=== PATIENT | male | born 1960 | race Caucasian/White ===

== ENCOUNTER 2022-07-24 11:15 | Emergency (ER) | payer SELFPAY ==
--- NOTE | ~2022-07-24 | XR_ITS ---
EXAMINATION: XR KNEE, LEFT CLINICAL INFORMATION: Pain COMPARISON: None TECHNIQUE: Four views of the left knee. FINDINGS: There is a bipartite patella. No fracture or dislocation. Joint spaces are normal. There is a large joint effusion. XR/XR knee LT 4V IMPRESSION: No fracture or dislocation. Large joint effusion. Bipartite patella.
[2022-07-24 11:25] VITALS: BP 171/102; PULSE 76; RESP 22; TEMP 36.7; O2SAT 96; BMI 37.3
--- NOTE | 2022-07-24 11:30 | ECG_ITS ---
Test Reason : HYPERTENTION Blood Pressure : / mmHG Vent. Rate : 075 BPM Atrial Rate : 075 BPM P-R Int : 184 ms QRS Dur : 108 ms QT Int : 374 ms P-R-T Axes : 030 065 048 degrees QTc Int : 417 ms Normal sinus rhythm Normal ECG No previous ECGs available Referred By: Generic ED Physician Electronically Signed By:FARZANA WAGONER MD
--- NOTE | 2022-07-24 11:50 | ED_ITS ---
HPI - General Adult General Chief complaint: General Medical Stated complaint: gout in the knee cap Time Seen by Provider: 07/24/22 11:44 Source: patient Mode of arrival: wheelchair Limitations: no limitations History of Present Illness HPI narrative: Patient is a 62 year old assigned male at with a history of gout and hypertension presenting to the emergency department today with a gout flare in his left knee. Patient states that he has a history of gout and is having a flare in his left knee currently. Patient states that he does not have a primary care doctor and does not have insurance. Patient states that he applied for [employer] over a month ago but has not gotten approved yet. Patient states that he was previously prescribed allopurinol and that helped a lot. Patient denies any dizziness, lightheadedness, abdominal pain, nausea, vomiting, fever, chills, blurry vision, double vision, loss of vision, chest pain, difficulty breathing, shortness of breath, back pain, night sweats, pain with urination, increased urinary frequency, increased urinary urgency, blood in his urine or stool, syncope or a near syncopal episode, recent trauma or falls, bowel incontinence, bladder incontinence, bowel retention, bladder retention, or any other complaints at this time. Onset (ago): day(s) Location: left and lower extremity Radiation: non-radiation Severity: mild Severity scale (1-10): 3 Quality: aching Pain Consistency: constant Relieving factors: none Exacerbating factors: none Associated symptoms: denies other symptoms Treatments prior to arrival: none Related Data Previous Rx's Medication Instructions Recorded allopurinol 100 mg tablet 200 mg PO DAILY #30 tabs 07/24/22 colchicine 0.6 mg capsule 0.6 mg PO DAILY #90 caps 07/24/22 Allergies Allergy/AdvReac Type Severity Reaction Status Date / Time No Known Allergies Allergy Verified 07/24/22 11:25 Review of Systems Constitutional: Constitutional: Reports no additional constitutional complaints, Denies chills, Denies fever(s) and Denies night sweats Eyes: Eyes: Reports no additional eye complaints, Denies blurry vision, Denies change in vision, Denies diplopia, Denies eye discharge, Denies loss of vision and Denies eye pain ENT: Denies dizziness Cardiovascular: Cardiovascular: Reports no additional cardiovascular complaints, Denies chest pain, Denies lightheadedness, Denies Loss of Consciousness and Denies dyspnea Respiratory: Respiratory: Reports no additional respiratory complaints and Denies dyspnea Gastrointestinal: Gastrointestinal: Reports no additional gastrointestinal complaints, Denies abdominal pain, Denies melena, Denies hematochezia, Denies change in bowel habits and Denies change in stool character Genitourinary: Genitourinary: Reports no additional male genitourinary complaints, Denies hematuria, Denies oliguria, Denies difficulty urinating, Denies dysuria, Denies urinary frequency, Denies urinary hesitancy, Denies urinary incontinence and Denies urinary urgency Musculoskeletal: Musculoskeletal: Reports no additional musculoskeletal complaints, Denies numbness and Denies tingling Comments: left knee pain Neurologic: Denies dizziness, Denies loss of vision, Denies numbness and Denies tingling Psychiatric: Psychiatric: Reports no additional psychiatric complaints Endocrine: Endocrine: Reports no additional endocrine complaints Hematologic/Lymphatic: Hematologic/Lymphatic: Reports no additional hematologic/lymphatic complaints Allergic/Immunologic: Allergic/Immunologic: Reports no additional allergic/immunologic complaints PMFSH Past Medical History Attestation statement: The following information was validated with the patient. Source: old records reviewed Social History Social History Advance Directives: Yes Advance Directives Information Provided: Yes Advance Directives on File: No Physical Exam ED Vital Signs: Vital Signs - 24 hr 07/24/22 11:25 Temperature 98.0 F Pulse Rate 76 Respiratory Rate 22 H Blood Pressure 171/102 H Pulse Oximetry 96 Oxygen Delivery Method Room Air BMI result Body Mass Index 37.3 Const General: cooperative, no acute distress, alert and awake Nutritional Appearance: well nourished Orientation/consciousness: patient oriented x3 Limitations: no limitations HENMT Head: Yes normal to inspection and Yes atraumatic Ears: hearing grossly normal bilaterally and external ears normal General nose exam: Normal external nose present, no nasal discharge noted and no epistaxis Face and sinus: Yes normal facial exam, No abrasion and No laceration Mouth: Normal oral and palatal mucosa present, no drooling and no muffled voice Eyes General: appearance normal, both eyes and all related structures Periorbital: periorbital findings normal Eyelids: Yes eyelids normal Conjunctivae: conjunctivae normal Pupils: Equal, round and reactive pupils present EOM: EOMs intact bilaterally Neck Neck: Yes normal visual inspection, Yes full ROM and Yes no lymphadenopathy Chest Chest palpation & inspection: normal inspection of the chest Resp Effort & Inspection: normal respiratory effort and able to speak in complete sentences Auscultation: clear to auscultation bilaterally Cardio Rate: regular rate Rhythm: regular rhythm GI Inspection: Yes normal to inspection Neuro General: patient oriented x3 and moves all extremities Cranial nerves: Yes Equal, round and reactive pupils present Cognition (Neuro): normal cognition Motor exam (neuro): 5/5 motor strength present throughout Sensory Exam: Normal double simultaneous stimulation for sensation Coordination: [id number] test normal Extrem General: Yes normal to inspection, Yes full ROM and Yes capillary refill normal Psych Appearance: grossly normal Mental Status: mental status grossly normal Affect: normal affect Attitude: cooperative Thought process: Normal thought process present Thought content: Normal thought content present Insight: Good insight present (Psych) Medical Decision Making MDM Narrative Medical decision making narrative: Patient is a 62 year old assigned male at with a history of gout and hypertension presenting to the emergency department today with a gout flare in his left knee. Patient's physical exam was unremarkable. Patient's EKG was unremarkable. Patient's left knee x-ray showed no acute susan process. Patient's current clinical presentation is most consistent with a gout flare. I explained my physical exam findings as well as all test results to the patient. I answered all questions asked by the patient. I stressed the importance of the patient taking his medication as prescribed. I stressed the importance of the patient following up with a primary care provider. I stressed the importance of the patient returning to the emergency department immediately if his symptoms were to worsen or if he were to develop any dizziness, shortness of breath, difficulty breathing, chest pain, blurry vision, loss of vision, nausea, vomiting, abdominal pain, fever, chills, back pain, or any other complaints. Patient verbalized agreement and understanding with this treatment plan and discharge. Medical Records Medical records reviewed: Yes I reviewed the patient's medical records. Imaging Data Left knee x-ray: Attestation: I personally reviewed and interpreted this imaging study as follows: My impression: No acute process. Radiologist's impression: EXAMINATION: XR KNEE, LEFT CLINICAL INFORMATION: Pain? COMPARISON: None? TECHNIQUE: Four views of the left knee. FINDINGS: There is a bipartite patella. No fracture or dislocation. Joint spaces are normal. There is a large joint effusion.? XR/XR knee LT 4V IMPRESSION: No fracture or dislocation. Large joint effusion. Bipartite patella. Dictated By: Antonietta West MD Signed By: Electronically signed by Antonietta West MD 07/24/22 3904 ECG Data Attestation: I personally reviewed and interpreted this ECG as follows: Prior ECG tracings: available for review Interpretation: Vent. Rate: 075 BPM ? ? Atrial Rate: 075 BPM P-R Int: 184 ms? QRS Dur: 108 ms QT Int: 374 ms ? ? ? P-R-T Axes: 030 065 048 degrees QTc Int: 417 ms ? Normal sinus rhythm Normal ECG No previous ECGs available DD/ [id number] Discharge Plan Discharge Clinical Impression: Gout Patient Disposition: Home, Self-Care Instructions: Gout (ED) Additional Instructions: Follow up with a primary care provider. Return to the emergency department immediately if your symptoms worsen or if you develop any dizziness, shortness of breath, difficulty breathing, chest pain, blurry vision, loss of vision, nausea, vomiting, abdominal pain, fever, chills, back pain, or any other complaints. Prescriptions: New allopurinol 100 mg tablet 200 mg PO DAILY Qty: 30 0RF Rx Instructions: Take 2 tablets, twice a day when a flare starts until the flare resolves. colchicine 0.6 mg capsule 0.6 mg PO DAILY Qty: 90 0RF Rx Instructions: Take daily after your gout flare stops. Referrals: [facility] [Provider Group] (Call to establish and follow up with a primary care provider. ) [facility]] (Call to establish and follow up with a primary care provider. ) [facility] ([facility] to establish and follow up with a primary care provider. ) [facility] [Physician] - (Call to establish and follow up with a primary care provider. ) Interventions: ED Discharge Assessment Last Done: 07/24/22 12:26 Discharge Date/Time: 07/24/22 12:29 Print Language: Tanzanian
== END 2022-07-24 12:29 | disposition home or self-care (01) ==
LOC: HO.ED 12:20
PROVIDERS: Emergency Provider Student in an Organized Health Care Education/Training Program
DX: M10.062 Idiopathic gout, left knee (principal); I10 Essential (primary) hypertension; Z79.899 Other long term (current) drug therapy
CPT/HCPCS: 73564; 93005; 99282; 99283

== ENCOUNTER 2022-07-27 14:22 | Emergency (ER) | payer SELFPAY ==
[2022-07-27 15:39] VITALS: BP 165/86; PULSE 91; RESP 20; TEMP 37.5; O2SAT 96; BMI 36.6
[2022-07-27] MEDS: Ibuprofen 600 MG TABLET PO (15:45)
--- NOTE | 2022-07-27 17:39 | ED_ITS ---
HPI - General Adult General Chief complaint: Extremity Injury, Lower Stated complaint: chest pain , dizziness, sob, blurred vision Time Seen by Provider: 07/27/22 17:28 Source: patient Mode of arrival: ambulatory Limitations: no limitations History of Present Illness HPI narrative: 62 yold male with pmh history of gout and hypertension with no health insurance presents to the ED for left knee exacrebation. patient was recently seen in the ED on 07/24 for left knee gout exacerbation. Patient was discharged with allupurinol and colcichine but no indomethacin due to no insurance. patient states pain is still persistent. Patient denies fever, chills, chest pain, shortness of breath, redness, or any recent trauma. Before last ED visit patiient admitted to having alcohol and meat binge and than symptmos started. Related Data Previous Rx's Medication Instructions Recorded allopurinol 100 mg tablet 200 mg PO DAILY #30 tabs 07/24/22 colchicine 0.6 mg capsule 0.6 mg PO DAILY #90 caps 07/24/22 indomethacin 50 mg capsule 50 mg PO TID 5 days #15 caps 07/27/22 oxycodone 5 mg tablet 5 mg PO TID PRN pain 3 days #9 tabs 07/27/22 prednisone 20 mg tablet 40 mg PO DAILY 5 days #10 tabs 07/27/22 Allergies Allergy/AdvReac Type Severity Reaction Status Date / Time No Known Allergies Allergy Verified 07/24/22 11:25 Review of Systems Review of Systems: Left knee pain Yes all other systems are reviewed and are negative PMFSH Social History Social History Advance Directives: No Advance Directives Information Provided: No Physical Exam ED Vital Signs: Vital Signs - 24 hr 07/27/22 15:39 07/27/22 19:13 Temperature 99.5 F 98.3 F Pulse Rate 91 85 Respiratory Rate 20 20 Blood Pressure 165/86 H 167/93 H Pulse Oximetry 96 96 Oxygen Delivery Method Room Air Room Air BMI result Body Mass Index 36.6 Const General: cooperative, healthy appearing, comfortable, no acute distress, well developed, alert, awake and Physically active Orientation/consciousness: patient oriented x3 HENMT Head: Yes normal to inspection, Yes No palpable skull fracture present, Yes normocephalic, Yes atraumatic and No abrasion Eyes General: appearance normal, both eyes and all related structures Neck Neck: Yes normal visual inspection, Yes full ROM, Yes no lymphadenopathy, Yes no meningeal signs, Yes trachea midline, Yes supple, No anterior neck swelling and No tender Chest Chest palpation & inspection: normal inspection of the chest and normal palpation of entire chest wall Resp Effort & Inspection: normal respiratory effort and able to speak in complete sentences Auscultation: clear to auscultation bilaterally Cardio Jugular venous distension: no JVD Heart sounds: S1 normal heart sound present and S2 normal heart sound present GI Inspection: Yes normal to inspection and No abdominal wall ecchymosis Palpation (GI): Soft to palpation, not firm, nontender, no guarding and not rigid General: No CVA tenderness and Yes no CVA tenderness Back/Spine/Pelvis Back: no CVA tenderness, No CVA tenderness and No back tenderness Skin General skin exam: no rashes or lesions noted and elasticity normal Neuro General: patient oriented x3, gait normal and no meningeal signs Cranial nerves: Yes CN's II-XII intact bilaterally Extrem Knee images: 1. anterior left knee swelling without Redness. positive for tenderness. patient able to move knee, but with pain. Rest of leg negative for erythema, swelling, or calf pain. Motor/Neuro/Vascular Exam is intact Psych Appearance: grossly normal, well kempt and not disheveled Course Course Course Narrative: Patient educated on getting insurance to recieve meds to treat gout. Vital signs does not inidicate Infection. Will give pain meds and reasses. Reevaluation(s) Reevaluation #1: Patient's pain resolved after receiving Toradol, oxycodone, and steroids. Patient has complete range of motion of knee. Not suspecting septic joint. Once again this is gout exacerbation. Patient will be discharged with indomethacin, steroids, and oxycodone. Patient will be given yellow card for discount Time: 19:22 Medical Decision Making [facility] Narrative Medical decision making narrative: Gout exacerbation Discharge Plan Discharge Clinical Impression: Gout attack Patient Disposition: Home, Self-Care Instructions: Gout (ED) Additional Instructions: You were seen in the ED for gout exacerbation. You will be discharged with indomethacin, steroids, and oxycodone. Return to the ED immediately for any increased swelling, warmth, fever, chills, leg swelling, knee stiffness, calf pain, chest pain, shortness of breath, or any other concerning symptoms. Please follow up with primary care provider. Prescriptions: New indomethacin 50 mg capsule 50 mg PO TID 5 Days Qty: 15 0RF Rx Instructions: administer with food or milk prednisone 20 mg tablet 40 mg PO DAILY 5 Days Qty: 10 0RF oxycodone 5 mg tablet 5 mg PO TID PRN (Reason: pain) 3 Days Qty: 9 0RF Rx Instructions: Partial Fill upon patient request. Side effect is drowsiness. Do not take at work or while driving. No Action allopurinol 100 mg tablet 200 mg PO DAILY Qty: 30 0RF Rx Instructions: Take 2 tablets, twice a day when a flare starts until the flare resolves. colchicine 0.6 mg capsule 0.6 mg PO DAILY Qty: 90 0RF Rx Instructions: Take daily after your gout flare stops. Referrals: [facility] [Provider Group] (Gout exacerbation) Interventions: ED Discharge Assessment Last Done: 07/27/22 19:36 Discharge Date/Time: 07/27/22 19:37 Print Language: Greek
[2022-07-27] MEDS: Ketorolac Tromethamine 30 MG/ML VIAL IM (18:26)
[2022-07-27] MEDS: oxyCODONE HCl Immed Release 5 MG TABLET 10 MG PO (18:27)
[2022-07-27] MEDS: predniSONE 20 MG TABLET 60 MG PO (18:27)
[2022-07-27 19:13] VITALS: BP 167/93; PULSE 85; RESP 20; TEMP 36.8; O2SAT 96
--- NOTE | 2022-07-27 19:35 | PC.NURSE ---
Discharge instructions provided to pt by [facility].
== END 2022-07-27 19:37 | disposition home or self-care (01) ==
PROVIDERS: Emergency Provider Emergency Medicine
DX: M10.9 Gout, unspecified (principal); M25.562 Pain in left knee; I10 Essential (primary) hypertension
CPT/HCPCS: 96372; 99283; 99284; J1885

== ENCOUNTER 2024-04-04 07:45 | Emergency (ER) | payer SELFPAY ==
[2024-04-04 07:53] VITALS: BP 130/84; PULSE 89; RESP 20; TEMP 36.6; O2SAT 97; BMI 39.2
--- NOTE | 2024-04-04 08:02 | PC.NURSE ---
This RN had just finished triaging patient when MD came to bedside. the MD was asking multiple questions when patient stated I just need the meds today I aint got much time left anyways and hen continued to motion a gun motion to his head. This RN and MD asked clarifying questions to which patient stated he was tired and just didnt want to do it anymore, then continued to say he was suicidal (while laughing and joking about it) Pt stated he would go in front of a truck or shoot himself, but then stated I do not own guns. Patient laughing throughout, not giving staff definite answers, stating he is only saying all of this because he is in pain
--- NOTE | 2024-04-04 08:13 | ED.EXTPRO ---
HPI - Extremity Problem General Chief complaint: General Medical Stated complaint: Gout Time Seen by Provider: 04/04/24 07:59 Source: patient and old records reviewed Mode of arrival: wheelchair Limitations: no limitations History of Present Illness ED Provider: CHRISTINA GOODWIN Narrative: 64 yo male with no health insurance so he does not see a doctor states he gets recurrent gout in both knees and other joints. He comes in with c/o 3-4 days of R knee pain and has been prescribed meds here in the past that helped. He notes they are expensive so he cannot always take all of them. He has no fevers, he states he needs to get better to work. I spoke to him about seeing a doctor regularly for kidney function given he has taken indomethacin and allopurinol in the past and that just continuing these medications without follow up might not be the best choice. I spoke to him about starting steroids and pain medications and then he just started to rapid fire suicidal plans. He stated doc I don't have long to live, I am suicidal and just dont' think I'm going to live long maybe a year or 10 . He then held his hand up to his head in a gun gesture, he next stated or maybe I will jump in front of a truck. He was smiling the whole time and when I explained we cannot just let you go after all of this he stated ok but didn't seem to understand why. He then told me he doesn't own guns. His mood does not seem to match his statements. Complaint: joint swelling and joint pain Onset (ago): day(s) (4) Pain Consistency: constant Location: left, right and knee Quality: aching and constant Radiation: none Relieving factors: immobilization Exacerbating factors: range of motion, weight bearing, walking and palpation Associated symptoms: denies other symptoms Context: history of gout Related Data Previous Rx's ?Medication ?Instructions ?Recorded allopurinol 100 mg tablet 200 mg (2 x 100 mg) PO DAILY #30 07/24/22 tabs colchicine 0.6 mg capsule 0.6 mg PO DAILY #90 caps 07/24/22 indomethacin 50 mg capsule 50 mg PO TID 5 days #15 caps 07/27/22 oxycodone 5 mg tablet 5 mg PO TID PRN pain 3 days #9 tabs 07/27/22 prednisone 20 mg tablet 40 mg (2 x 20 mg) PO DAILY 5 days 07/27/22 #10 tabs morphine 15 mg immediate release 15 mg PO Q6H PRN pain #10 tabs 04/04/24 tablet prednisone 20 mg tablet 40 mg (2 x 20 mg) PO DAILY 5 days 04/04/24 #10 tabs Allergies Allergy/AdvReac Type Severity Reaction Status Date / Time No Known Allergies Allergy Verified 04/04/24 07:56 Review of Systems Review of Systems: Constitutional : No Fever, No Chills ENT/Mouth : No Ear Pain, No Hoarseness, No sore throat Eyes: No Eye Pain, No Swelling, No Redness, No Foreign Body Cardiovascular : No Chest Pain, No SOB Respiratory : No Cough, No Dyspnea Gastrointestinal : No Nausea, No Vomiting, No Diarrhea, No abdominal Pain Genitourinary : No Dysuria, No Hematuria Musculoskeletal : positive joint pain, No Myalgias, pos Joint Swelling Skin : No Skin lacerations, No rash Neuro : No Weakness, No Numbness, No Loss of Consciousness, No Dizziness, No Headache Psych : No Anxiety/Panic, No Depression All other systems reviewed and are negative [facility] Past Medical History Attestation statement: The following information was validated with the patient. Source: old records reviewed Medical History (Updated 04/04/24 @ 08:24 by Araseli Brunner DO) Gout Social History Social History (Updated 04/04/24 @ 08:20 by Araseli Brunner DO) Patient Tobacco Use Status: Current everyday Tobacco user Advance Directives: No Do you have a plan to hurt others: No Plan Physical Exam Vital Signs: Vital Signs: Last Vital Signs Temp 98 F 04/04/24 07:53 Pulse 89 04/04/24 07:53 Resp 20 04/04/24 07:53 BP 130/84 04/04/24 07:53 Pulse Ox 97 04/04/24 07:53 O2 Del Method Room Air 04/04/24 07:53 BMI result Body Mass Index 39.2 Appearance: Alert. Oriented X3. No acute distress. Eyes: Pupils equal, round and reactive to light. ENT: Pharynx normal. Neck: Normal inspection. Neck supple. CVS: Normal heart rate and rhythm. Pulses normal. Respiratory: No respiratory distress. Breath sounds normal. Abdomen: Soft and nontender. Skin: Skin warm and dry. Normal skin color. Normal skin turgor. Extremities: R knee not red or hot to touch - he has small to medium joint effusion distal NV intact, L knee also appears arthritic but no red or hot with small joint effusion Neuro: Oriented X 3. No motor deficit. No sensory deficit. CN 2-12 intact Course Course Course Narrative: observation care revealed that the patient does not meet medical / psychiatric necessity for hospitalization. final disposition discussed with the patient. The patient completed observation care at 1045m. Total time in observation care was 2 hours. Medications Administered Discontinued Medications Generic Name Dose Route Start Last Admin Trade Name Tanya PRN Reason Stop Dose Admin Morphine Sulfate 15 mg 04/04/24 07:59 04/04/24 08:49 Morphine Sulfate Immed Release 15 Mg Tablet PO 04/04/24 08:00 15 mg ONCE ONE Administration Prednisone 60 mg 04/04/24 07:59 04/04/24 08:49 Prednisone 20 Mg Tablet PO 04/04/24 08:00 60 mg ONCE ONE Administration Medical Decision Making Medical Decision Making MDM Narrative: 64 yo male with hx of gout and no PCP follow up who presents with c/o chronic intermittent gout initially the plan was to start on prednisone and pain medications which was the safest route in someone not following up with PCP or getting labs done but then he started to make SI statements with a plan. At this time gout treatment then med clearance for CARE team. Differential Diagnosis Differential Diagnoses: The differential diagnosis associated with the presentation includes gout, pseudogout depression Admission/Observation Consideration of admission/observation: Escalation of care including admission/observation considered physician observation started at 820am pending CARE team input Consult Healthcare Provider Management of the patient was discussed with: Behavioral Health Provider Lab Data [facility] Lab Attestation statement: I reviewed the patient's lab results. 04/04/24 08:40 04/04/24 08:40 Labs: Lab Results 04/04/24 04/04/24 Range/Units 08:40 09:20 WBC 14.6 H (4.8-10.8) X10*3/uL RBC 4.88 (4.60-5.80) X10*6/uL Hgb 15.5 (14.0-18.0) g/dl Hct 44.7 (42.0-52.0) % MCV 91.6 (80.0-98.0) fL MCH 31.8 (27.0-33.0) pg MCHC 34.7 (31.0-36.0) g/dl RDW 13.1 (11.0-16.0) % Plt Count 258 (160-400) X10*3/uL MPV 9.8 (9.4-12.4) fL Immature Gran % (Auto) 0.6 H (0.0-0.4) % Neut % (Auto) 73.4 H (45-73) % Lymph % (Auto) 15.6 L (20-40) % [place] % (Auto) 7.8 (2-11) % Eos % (Auto) 1.8 (0-4) % Baso % (Auto) 0.8 (0-2) % Lymph # (Auto) 2.3 (1.2-4.9) X10*3/uL [place] # (Auto) 1.1 (0.1-1.2) X10*3/uL Eos # (Auto) 0.3 (0.0-0.4) X10*3/uL Baso # (Auto) 0.1 (0.0-0.2) X10*3/uL Abs Immat Gran (auto) 0.09 H (0.00-0.03) X10*3/uL Absolute Neuts (auto) 10.7 H (2.0-8.3) x10*3/uL Absolute Nucleated RBC 0.000 (0.0-0.012) X10*3/uL Nucleated RBC % (auto) 0.0 (0.0-0.2) /100WBC Sodium 134 L (135-145) mmol/L Potassium 4.2 (3.3-5.1) mmol/L Chloride 103 (96-108) mmol/L Carbon Dioxide 17 L (22-29) mmol/L Anion Gap 18 (12-20) BUN 12 (9-16) mg/dL Creatinine 0.83 (0.5-1.4) mg/dL Estim Creat Clear Calc 110.9 Estimated GFR > 60 Random Glucose 110 (60-115) mg/dL Calcium 10.0 (8.4-10.2) mg/dL Urine Opiates Screen Not Detected (Not Detect) Ur Buprenorphine Scrn Not Detected (Not Detect) ng/mL Ur Oxycodone Screen Not Detected (Not Detect) ng/mL Urine Methadone Screen Not Detected (Not Detect) ng/mL Urine Fentanyl Screen Not Detected (Not Detect) Ur Barbiturates Screen Not Detected (Not Detect) Ur Phencyclidine Scrn Not Detected (Not Detect) Ur Amphetamines Screen Not Detected (Not Detect) U Benzodiazepines Scrn Not Detected (Not Detect) Urine Cocaine Screen Not Detected (Not Detect) U Marijuana (THC) Screen POSITIVE H (Not Detect) Ethyl Alcohol < 10 mg/dL External Record Review External record reviewed: Inpatient record Prescription Management I considered prescription management with: Pain Medication and Other Discharge Plan Discharge Clinical Impression: Gout attack Qualifiers: Gout site: knee Gout etiology: unspecified cause Laterality: right Qualified Code(s): M10.9 - Gout, unspecified Patient Disposition: Home, Self-Care Instructions: Gout (ED) Additional Instructions: return for wrosening symptoms or concerns. follow up for fevers, increased swelling and no improvement in the next 48 hours, redness of the joint Prescriptions: New prednisone 20 mg tablet 40 mg PO DAILY 5 Days Qty: 10 0RF morphine 15 mg tablet 15 mg PO Q6H PRN (Reason: pain) Qty: 10 0RF Rx Instructions: partial fill okay; Partial Fill upon patient request. No Action allopurinol 100 mg tablet 200 mg PO DAILY Qty: 30 0RF Rx Instructions: Take 2 tablets, twice a day when a flare starts until the flare resolves. colchicine 0.6 mg capsule 0.6 mg PO DAILY Qty: 90 0RF Rx Instructions: Take daily after your gout flare stops. indomethacin 50 mg capsule 50 mg PO TID 5 Days Qty: 15 0RF Rx Instructions: administer with food or milk prednisone 20 mg tablet 40 mg PO DAILY 5 Days Qty: 10 0RF oxycodone 5 mg tablet 5 mg PO TID PRN (Reason: pain) 3 Days Qty: 9 0RF Rx Instructions: Partial Fill upon patient request. Side effect is drowsiness. Do not take at work or while driving. Print Language: Togolese
[2024-04-04 08:44] LABS: MANUAL DIFF FLAG NO
[2024-04-04 08:47] LABS: Basophils Absolute Auto 0.1 X10*3/uL (0.0-0.2); Basophils Percent Auto 0.8 % (0-2); Eosinophils Absolute Auto 0.3 X10*3/uL (0.0-0.4); Eosinophils Percent Auto 1.8 % (0-4); Hematocrit 44.7 % (42.0-52.0); Hemoglobin 15.5 g/dl (14.0-18.0); Imm Gran Abs Auto 0.09 X10*3/uL (0.00-0.03); Imm Gran Pct Auto 0.6 % (0.0-0.4); Lymphocytes Absolute Auto 2.3 X10*3/uL (1.2-4.9); Lymphocytes Percent Auto 15.6 % (20-40); Mean Corpuscular HGB Conc 34.7 g/dl (31.0-36.0); Mean Corpuscular Hemoglobin 31.8 pg (27.0-33.0); Mean Corpuscular Volume 91.6 fL (80.0-98.0); Mean Platelet Volume 9.8 fL (9.4-12.4); Monocytes Absolute Auto 1.1 X10*3/uL (0.1-1.2); Monocytes Percent Auto 7.8 % (2-11); Neutrophils Absolute Auto 10.7 x10*3/uL (2.0-8.3); Neutrophils Percent Auto 73.4 % (45-73); Platelet Count 258 X10*3/uL (160-400); Red Blood Count 4.88 X10*6/uL (4.60-5.80); Red Cell Distribution Width 13.1 % (11.0-16.0); White Blood Count 14.6 X10*3/uL (4.8-10.8)
[2024-04-04] MEDS: predniSONE 20 MG TABLET 60 MG PO (08:49)
[2024-04-04] MEDS: Morphine Sulfate Immed Release 15 MG TABLET PO (08:49)
[2024-04-04 09:03] LABS: Anion Gap 18 (12-20); Blood Urea Nitrogen 12 mg/dL (9-16); Carbon Dioxide 17 mmol/L (22-29); Chloride 103 mmol/L (96-108); Creatinine Clr Calc Pharmacy 110.9; Estimated Glomerular Filt Rate > 60; Ethanol < 10 mg/dL; Glucose Random 110 mg/dL (60-115); Potassium 4.2 mmol/L (3.3-5.1); Sodium 134 mmol/L (135-145)
[2024-04-04 09:38] LABS: Amphetamine Screen Urine Not Detected (Not Detect); Barbiturates, Urine Not Detected (Not Detect); Benzodiazepines Screen Urine Not Detected (Not Detect); Buprenorphine Scr Not Detected (Not Detect); Cannabinoid Screen Urine POSITIVE (Not Detect); Cocaine Screen Urine Not Detected (Not Detect); Fentanyl, urine Not Detected (Not Detect); Methadone Screen, Urine Not Detected (Not Detect); Opiate Screen Urine Not Detected (Not Detect); Oxycodone Screen Urine Not Detected (Not Detect); Phencyclidine Screen Urine Not Detected (Not Detect)
--- NOTE | 2024-04-04 11:05 | PC.NURSE ---
CARE team at bedside, pt denies any SI thoughts/means/prior attempts. pt reports that he made joking statements because of the pain. provider aware.
[2024-04-04 11:08] VITALS: BP 130/84; PULSE 89; RESP 20; TEMP 36.6; O2SAT 97
== END 2024-04-04 11:08 | disposition home or self-care (01) ==
PROVIDERS: Emergency Provider Emergency Medicine
DX: M10.061 Idiopathic gout, right knee (principal); M10.062 Idiopathic gout, left knee; M25.50 Pain in unspecified joint; Z79.899 Other long term (current) drug therapy
CPT/HCPCS: 36415; 80048; 80307; 85025; 99283; S9485

== ENCOUNTER 2025-03-18 12:26 | Emergency (ER) | payer MEDICAID, SELFPAY ==
--- NOTE | ~2025-03-18 | XR_ITS ---
CLINICAL HISTORY: pain, swelling 4 views of the right knee. COMPARISON: None FINDINGS: [id number] right suprapatellar joint effusion. Soft tissue swelling overlying the anterior aspect of the knee. Joint spaces are maintained. Small osteophytes present along the patellofemoral compartment. Visualized portions of the distal femur, patella, and proximal tibia and fibula appear intact. Fabella present. Well corticated thin ossification along the medial femoral condyle can be associated with chronic MCL injury. This does not appear acute. IMPRESSION: 1. [id number] right suprapatellar joint effusion. Soft tissue swelling overlying the anterior aspect of the knee. This document has been electronically signed by: Gino Vo MD on 03/18/2025 15:56:06
--- NOTE | ~2025-03-18 | XR_ITS ---
CLINICAL HISTORY: pain, swelling Three views of the right hand. COMPARISON: None FINDINGS: Distal radius and ulna appear intact. Decreased radiocarpal joint space with [id number] apposition of the radius and lunate. Carpal bones appear intact. Degenerative changes of the 1st CMC joint with small osteophytes. Metacarpals appear intact. Phalanges appear intact. Degenerative changes of the 5th DIP joint with prominent osteophytes. No radiopaque foreign body. IMPRESSION: 1. No radiographic evidence of acute injury to the right hand. 2. 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 This document has been electronically signed by: Gino Vo MD on 03/18/2025 15:55:07
[2025-03-18 12:34] VITALS: BP 164/96; PULSE 92; RESP 18; TEMP 36.8; O2SAT 96; BMI 38.0
[2025-03-18 12:38] VITALS: BP 138/100; PULSE 92; O2SAT 98
--- NOTE | 2025-03-18 12:42 | ED.LOWEXIN ---
HPI - Extremity Injury (Lower) General Chief Complaint: Extremity Injury, Lower Stated Complaint: KNEE PAIN Time Seen by Provider: 03/18/25 12:41 Source: patient and RN notes reviewed Mode of arrival: ambulatory Limitations: no limitations History of Present Illness ED Provider: Marcy Gil PA-C HPI Narrative: This is a 65-year-old male, with a past medical history of gout and hypertension, who presents emergency department with concerns of gout flare-up. patient reports that over the last 4-5 days he has had pain in his right knee, right ankle, and right foot. He states that he has a history of gout in his feels exactly like the gout flare-ups he has had in the past. He he has not on any medications at this time. He denies any fevers or chills. No chest pain or shortness of breath. Denies taking any medications prior to his arrival today. He is a pack-a-day smoker. No other complaints or concerns at this time. Onset (ago): day(s) Other symptoms: none Related Data Previous Rx's ?Medication ?Instructions ?Recorded allopurinol 100 mg tablet 200 mg (2 x 100 mg) PO DAILY #30 07/24/22 tabs colchicine 0.6 mg capsule 0.6 mg PO DAILY #90 caps 07/24/22 indomethacin 50 mg capsule 50 mg PO TID 5 days #15 caps 07/27/22 oxycodone 5 mg tablet 5 mg PO TID PRN pain 3 days #9 tabs 07/27/22 prednisone 20 mg tablet 40 mg (2 x 20 mg) PO DAILY 5 days 07/27/22 #10 tabs morphine 15 mg immediate release 15 mg PO Q6H PRN pain #10 tabs 04/04/24 tablet prednisone 20 mg tablet 40 mg (2 x 20 mg) PO DAILY 5 days 04/04/24 #10 tabs acetaminophen 500 mg tablet 1,000 mg (2 x 500 mg) PO Q8H PRN 03/18/25 (Tylenol Extra Strength) pain #30 tabs morphine 15 mg immediate release 15 mg PO Q6H PRN severe pain 03/18/25 tablet (scale score 7-10) #7 tabs prednisone 20 mg tablet 40 mg (2 x 20 mg) PO DAILY 4 days 03/18/25 #8 tabs Allergies Allergy/AdvReac Type Severity Reaction Status Date / Time No Known Allergies Allergy Verified 03/18/25 12:35 Review of Systems Review of Systems: Yes all other systems are reviewed and are negative Constitutional: Constitutional: Reports as per HPI Eyes: Eyes: Reports as per HPI, Denies change in vision and Denies eye discharge ENT: Reports system reviewed and no additional complaints, except as documented, Reports as per HPI, Reports Normal hearing present and Denies facial pain Cardiovascular: Cardiovascular: Reports as per HPI and Denies chest pain Respiratory: Respiratory: Reports as per HPI and Denies cough Gastrointestinal: Gastrointestinal: Reports as per HPI, Reports no additional gastrointestinal complaints, Denies abdominal pain, Denies diarrhea, Denies nausea and Denies vomiting Genitourinary: Genitourinary: Reports as per HPI Musculoskeletal: Musculoskeletal: Reports as per HPI Integumentary/Breasts: Skin/Breast: Reports system reviewed and no additional complaints, except as docu, Reports as per HPI, Reports erythema, Denies rash and Denies wounds Neurologic: Reports Normal hearing present Psychiatric: Psychiatric: Reports no additional psychiatric complaints and Reports as per HPI Endocrine: Endocrine: Reports no additional endocrine complaints and Reports as per HPI Hematologic/Lymphatic: Hematologic/Lymphatic: Reports no additional hematologic/lymphatic complaints and Reports as per HPI Allergic/Immunologic: Allergic/Immunologic: Reports no additional allergic/immunologic complaints and Reports as per HPI [facility] Past Medical History Medical History (Updated 03/18/25 @ 16:51 by SALVADOR Armstrong) Gout Social History Social History (Updated 04/04/24 @ 08:20 by Araseli Brunner DO) Patient Tobacco Use Status: Current everyday Tobacco user Physical Exam Vital Signs: Vital Signs: Last Vital Signs Temp 98.4 F 03/18/25 17:00 Pulse 74 03/18/25 17:00 Resp 14 03/18/25 17:00 BP 144/82 H 03/18/25 17:00 Pulse Ox 93 03/18/25 17:00 O2 Del Method Room Air 03/18/25 17:00 BMI result Body Mass Index 38.0 Const: General: cooperative, comfortable and no acute distress Orientation/consciousness: patient oriented x3 Limitations: no limitations HEENT: Head: Yes normal to inspection, Yes normocephalic and Yes atraumatic Ears: hearing grossly normal bilaterally General nose exam: Normal external nose present Face and sinus: Yes normal facial exam Mouth: Normal oral and palatal mucosa present, oropharynx normal and moist mucous membranes Throat: Yes posterior oropharynx normal Eyes: General: appearance normal, both eyes and all related structures Eyelids: Yes eyelids normal Conjunctivae: conjunctivae normal Sclerae: sclerae normal Pupils: Equal, round and reactive pupils present EOM: EOMs intact bilaterally Neck: Neck: Yes normal visual inspection, Yes full ROM and Yes no lymphadenopathy Lymphatic: no lymphadenopathy noted Chest: Chest palpation & inspection: normal inspection of the chest Resp: Effort & Inspection: normal respiratory effort and able to speak in complete sentences Auscultation: clear to auscultation bilaterally Cardio: Rate: regular rate Rhythm: regular rhythm Heart sounds: S1 normal heart sound present and S2 normal heart sound present GI: Inspection: Yes normal to inspection Skin: General skin exam: no rashes or lesions noted Trauma: no lacerations or abrasions Wounds: no wounds Neuro: General: patient oriented x3 and moves all extremities Cranial nerves: Yes Equal, round and reactive pupils present and Yes Normal hearing present Extrem: Other: right knee, right ankle, and right foot with exquisite tenderness even with light touch, no profound overlying erythema or warmth. Able to flex and extend at the knee and ankle joint. No calf tenderness. Strong DP pulse. Sensation intact. Leg is well perfused. patient with moderate tenderness palpation along the dorsum of the right hand, no overlying erythema or warmth. Full ROM. Strong radial pulse. General: Yes normal to inspection Right upper extremity: normal to inspection Left upper extremity: normal to inspection Left lower extremity: normal to inspection Medications Administered Discontinued Medications Generic Name Dose Route Start Last Admin Trade Name Justinq PRN Reason Stop Dose Admin Acetaminophen 975 mg 03/18/25 16:46 03/18/25 16:52 Acetaminophen 325 Mg Tablet PO 03/18/25 16:47 975 mg ONCE ONE Administration Morphine Sulfate 4 mg 03/18/25 12:48 03/18/25 13:03 Morphine Sulfate 4 Mg/Ml Cartridge IVPUSH 03/18/25 12:49 4 mg ONCE ONE Administration Protocol Morphine Sulfate 4 mg 03/18/25 16:46 03/18/25 16:52 Morphine Sulfate 4 Mg/Ml Cartridge IVPUSH 03/18/25 16:47 4 mg ONCE ONE Administration Protocol Prednisone 50 mg 03/18/25 12:48 03/18/25 13:03 Prednisone 10 Mg Tablet PO 03/18/25 12:49 50 mg ONCE ONE Administration Medical Decision Making Medical Decision Making [facility] Narrative: This is a 65-year-old male who presents emergency department for evaluation of gout flare-up in his right knee, ankle and foot. On arrival, patient hypertensive at 164/96, he has no chest pain, shortness for breath or blurred vision. No headache. You likely secondary to the pain. Patient has a history of gouty flare-ups which she has seen providers here in the past for. No fevers or chills. Will obtain basic labs, and medicate with dose of morphine and prednisone in the emergency department. Will continue to closely monitor. 1700 - X-ray of the knee revealing moderate to large right suprapatellar joint effusion, soft tissue swelling overlying the anterior aspect of the knee, right hand x-ray revealing no acute injury, he does have degenerative changes more pronounced along the 50 IP joint. Patient re-evaluated, feeling much better after receiving prednisone. Labs returned, he has elevated white blood cell count at 13.1, however this is nonspecific, does not appear to be infectious, this is likely reactive. uric acid is elevated, inflammatory markers are also elevated. Patient has a history of gout and symptoms are consistent with a gout like flare-up. Will treat with prednisone, pain management. Given strict return precautions. Patient stable for discharge. Differential Diagnosis Differential Diagnoses: The differential diagnosis associated with the presentation includes Gouty arthritis, pseudogout, arthritis Lab Data [facility] Lab Attestation statement: I reviewed the patient's lab results. See MDM and course 03/18/25 12:58 03/18/25 12:58 Labs: Lab Results 03/18/25 Range/Units 12:58 WBC 13.1 H (4.8-10.8) X10*3/uL RBC 4.37 L (4.60-5.80) X10*6/uL Hgb 14.0 (14.0-18.0) g/dl Hct 40.1 L (42.0-52.0) % MCV 91.8 (80.0-98.0) fL MCH 32.0 (27.0-33.0) pg MCHC 34.9 (31.0-36.0) g/dl RDW 13.1 (11.0-16.0) % Plt Count 261 (160-400) X10*3/uL MPV 9.8 (9.4-12.4) fL Immature Gran % (Auto) 0.5 H (0.0-0.4) % Neut % (Auto) 76.7 H (45-73) % Lymph % (Auto) 12.5 L (20-40) % [place] % (Auto) 8.9 (2-11) % Eos % (Auto) 0.9 (0-4) % Baso % (Auto) 0.5 (0-2) % Lymph # (Auto) 1.6 (1.2-4.9) X10*3/uL [place] # (Auto) 1.2 (0.1-1.2) X10*3/uL Eos # (Auto) 0.1 (0.0-0.4) X10*3/uL Baso # (Auto) 0.1 (0.0-0.2) X10*3/uL Abs Immat Gran (auto) 0.07 H (0.00-0.03) X10*3/uL Absolute Neuts (auto) 10.1 H (2.0-8.3) x10*3/uL Absolute Nucleated RBC 0.000 (0.0-0.012) X10*3/uL Nucleated RBC % (auto) 0.0 (0.0-0.2) /100WBC ESR 33 H (0-15) MM/HR Sodium 132 L (135-145) mmol/L Potassium 4.0 (3.3-5.1) mmol/L Chloride 101 (96-108) mmol/L Carbon Dioxide 20 L (22-29) mmol/L Anion Gap 15 (12-20) BUN 8 L (9-16) mg/dL Creatinine 0.69 (0.5-1.4) mg/dL Estim Creat Clear Calc 142.4 Estimated GFR > 60 Random Glucose 139 H (60-115) mg/dL Uric Acid 8.9 H (3.4-7.0) mg/dL Calcium 9.4 (8.4-10.2) mg/dL Total Bilirubin 1.4 H (0.0-1.0) mg/dL AST 14 (5-37) U/L ALT 20 (0-40) U/L Alkaline Phosphatase 74 (39-117) U/L C-Reactive Protein 7.91 H (< or = 0.50) mg/dL Total Protein 7.4 (6.5-8.0) g/dL Albumin 4.4 (3.5-5.0) g/dL Radiology Impression Discussion of test interpretation with radiology: I have reviewed the radiologist's reading. Radiologist Impression: [address] [address] XRay Report Signed Patient: Tam Bernal MR#: [id number] : 1960 Acct:[id number] Age/Sex: 65 / M ADM Date: 03/18/25 Loc: HO.ED Attending Dr: Ordering Physician: Marcy Andrade Date of Service: 03/18/25 Procedure(s): XR hand RT min 3V Accession Number(s): [id number] cc: Marcy Andrade; Physician,None ~ CLINICAL HISTORY: pain, swelling Three views of the right hand. COMPARISON: None FINDINGS: Distal radius and ulna appear intact. Decreased radiocarpal joint space with [id number] apposition of the radius and lunate. Carpal bones appear intact. Degenerative changes of the 1st CMC joint with small osteophytes. Metacarpals appear intact. Phalanges appear intact. Degenerative changes of the 5th DIP joint with prominent osteophytes. No radiopaque foreign body. IMPRESSION: 1. No radiographic evidence of acute injury to the right hand. 2. 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 This document has been electronically signed by: Gino Vo MD on 03/18/2025 15:55:07 Dictated By: Gino Vo MD Signed By: <Electronically gertrude IMPRESSION: 1. [id number] right suprapatellar joint effusion. Soft tissue swelling overlying the anterior aspect of the knee. This document has been electronically signed by: Gino Vo MD on 03/18/2025 15:56:06 Dictated By: Gino Vo MD Discharge Plan Discharge Clinical Impression: Gout Patient Disposition: Home, Self-Care Instructions: Low Purine Diet (ED), Gout (ED) Additional Instructions: You were seen in the emergency department due to a gout flare-up. Please take prescribed medication as directed, finish the entire course even if your symptoms improve. Prednisone is a steroid medication, you already received a dose today. Please start this tomorrow (03/19). Please take Tylenol as needed for [id number] pain. Please take morphine as needed for severe pain only. Please be advised that this is a narcotic pain medication, this can cause drowsiness, do not drink alcohol or drive while taking this medication. This medication is addictive, therefore only use as needed for severe pain only. you need to have a primary care physician as this is very important for preventative medicine. Call the [facility]. If any new or worsening symptoms occur including but not limited to worsening pain, decreased range of motion of your joints, fevers, please seek emergent care. Prescriptions: New prednisone 20 mg tablet 40 mg PO DAILY 4 Days Qty: 8 0RF Rx Instructions: Start 03/19/2025 morphine 15 mg tablet 15 mg PO Q6H PRN (Reason: severe pain (scale score 7-10)) Qty: 7 0RF Rx Instructions: Partial Fill upon patient request. acetaminophen [Tylenol Extra Strength] 500 mg tablet 1,000 mg PO Q8H PRN (Reason: pain) Qty: 30 0RF No Action allopurinol 100 mg tablet 200 mg PO DAILY Qty: 30 0RF Rx Instructions: Take 2 tablets, twice a day when a flare starts until the flare resolves. colchicine 0.6 mg capsule 0.6 mg PO DAILY Qty: 90 0RF Rx Instructions: Take daily after your gout flare stops. indomethacin 50 mg capsule 50 mg PO TID 5 Days Qty: 15 0RF Rx Instructions: administer with food or milk prednisone 20 mg tablet 40 mg PO DAILY 5 Days Qty: 10 0RF oxycodone 5 mg tablet 5 mg PO TID PRN (Reason: pain) 3 Days Qty: 9 0RF Rx Instructions: Partial Fill upon patient request. Side effect is drowsiness. Do not take at work or while driving. prednisone 20 mg tablet 40 mg PO DAILY 5 Days Qty: 10 0RF morphine 15 mg tablet 15 mg PO Q6H PRN (Reason: pain) Qty: 10 0RF Rx Instructions: partial fill okay; Partial Fill upon patient request. Referrals: [facility] [Physician] - Interventions: ED Discharge Assessment Last Done: 03/18/25 17:00 Discharge Date/Time: 03/18/25 17:01 Print Language: Slovak
[2025-03-18] MEDS: Morphine Sulfate 4 MG/ML CARTRIDGE IVPUSH ×2 (13:03→16:52)
[2025-03-18] MEDS: predniSONE 10 MG TABLET 50 MG PO (13:03)
[2025-03-18 13:04] LABS: MANUAL DIFF FLAG NO
[2025-03-18 13:05] LABS: Basophils Absolute Auto 0.1 X10*3/uL (0.0-0.2); Basophils Percent Auto 0.5 % (0-2); Eosinophils Absolute Auto 0.1 X10*3/uL (0.0-0.4); Eosinophils Percent Auto 0.9 % (0-4); Hematocrit 40.1 % (42.0-52.0); Imm Gran Abs Auto 0.07 X10*3/uL (0.00-0.03); Imm Gran Pct Auto 0.5 % (0.0-0.4); Lymphocytes Absolute Auto 1.6 X10*3/uL (1.2-4.9); Lymphocytes Percent Auto 12.5 % (20-40); Mean Corpuscular HGB Conc 34.9 g/dl (31.0-36.0); Mean Corpuscular Volume 91.8 fL (80.0-98.0); Mean Platelet Volume 9.8 fL (9.4-12.4); Monocytes Absolute Auto 1.2 X10*3/uL (0.1-1.2); Monocytes Percent Auto 8.9 % (2-11); Neutrophils Absolute Auto 10.1 x10*3/uL (2.0-8.3); Neutrophils Percent Auto 76.7 % (45-73); Platelet Count 261 X10*3/uL (160-400); Red Blood Count 4.37 X10*6/uL (4.60-5.80); Red Cell Distribution Width 13.1 % (11.0-16.0); White Blood Count 13.1 X10*3/uL (4.8-10.8)
--- NOTE | 2025-03-18 13:24 | PC.NURSE ---
patient reports improvement in pain s/p medications. still having pain particularly in knee however greatly improved throughout
[2025-03-18 13:32] LABS: Alanine Aminotransferase 20 U/L (0-40); Albumin Level 4.4 g/dL (3.5-5.0); Alkaline Phosphatase 74 U/L (39-117); Anion Gap 15 (12-20); Aspartate Amino Transferase 14 U/L (5-37); Bilirubin Total 1.4 mg/dL (0.0-1.0); Blood Urea Nitrogen 8 mg/dL (9-16); C Reactive Protein 7.91 mg/dL (< or = 0.50); Calcium 9.4 mg/dL (8.4-10.2); Carbon Dioxide 20 mmol/L (22-29); Chloride 101 mmol/L (96-108); Creatinine Clr Calc Pharmacy 142.4; Estimated Glomerular Filt Rate > 60; Glucose Random 139 mg/dL (60-115); Sodium 132 mmol/L (135-145); Total Protein 7.4 g/dL (6.5-8.0); Uric Acid 8.9 mg/dL (3.4-7.0)
[2025-03-18 13:55] LABS: Erythrocyte Sedimentation Rate 33 MM/HR (0-15)
[2025-03-18 15:40] VITALS: BP 144/82; PULSE 74; RESP 14; O2SAT 93
[2025-03-18] MEDS: Acetaminophen 325 MG TABLET 975 MG PO (16:52)
[2025-03-18 17:00] VITALS: BP 144/82; PULSE 74; RESP 14; TEMP 36.9; O2SAT 93
== END 2025-03-18 17:01 | disposition home or self-care (01) ==
PROVIDERS: Physician Assistant Medical; Emergency Provider Emergency Medicine
DX: M10.9 Gout, unspecified (principal); M25.561 Pain in right knee; M25.461 Effusion, right knee
CPT/HCPCS: 36415; 73130; 73562; 80053; 84550; 85025; 85652; 86140; 96374; 96376; 99284; J2270

== ENCOUNTER → 2025-03-18 14:38 | Outpatient (BNV) | payer SELFPAY | PROVIDERS: Emergency Provider Emergency Medicine; Visit Provider Radiology Diagnostic Radiology | DX: M25.461 Effusion, right knee (principal); M19.041 Primary osteoarthritis, right hand | CPT/HCPCS: 73130; 73562 ==